=== PATIENT | female | born 1945 ===

== ENCOUNTER 2016-08-10 13:35 | Emergency (ER) | payer MEDICARE ==
--- NOTE | 2016-08-10 14:37 | Emergency Department Record ---
History of Present Illness - General Chief Complaint: Shortness of breath Stated Complaint: [place]/LOW HEART RATE Time Seen by Provider: 08/10/16 14:25 Source: Patient, Family Mode of Arrival: Ambulatory Limitations: No limitations - History of Present Illness Initial Comments: 70 yo female presents with a brief episode of shortness of breath. The symptoms lasted about 30 seconds. She reports she was in the kitchen and felt short of breath while getting coffee. No chest pain, no syncope, no lightheadedness, no leg swelling. The symptoms resolved after the 30 seconds and she remains asymptomatic. No return of symptoms. She has known chronic bradycardia. No recent chest pain or syncope. She did pass out many years ago. She follows with Dr Olson. He is aware of her HR. She states it has been in the upper 30's in the past when she has seen her doctor. Complaint: Shortness of breath Onset/Timin -: Hour(s) Severity: Mild Quality: Other Consistency: Intermittent Improves With: Nothing Worsens With: Nothing Associated Symptoms: Denies other symptoms Treatments Prior to Arrival: None - Related Data Home Medications Medication Instructions Recorded Confirmed Last Taken Aspirin 81 mg PO DAILY 08/10/16 08/10/16 08/10/16 Atorvastatin Calcium [Lipitor] 10 mg PO QHS 08/10/16 08/10/16 08/09/16 Losartan Potassium [Losartan 100 mg PO DAILY 08/10/16 08/10/16 08/10/16 Potassium] Allergies Allergy/AdvReac Type Severity Reaction Status Date / Time codeine [CODEINE] Allergy Unknown not sure Verified 08/10/16 14:10 penicillin V potassium Allergy Unknown not sure Verified 08/10/16 14:10 [From MILADY Moser] Travel Screening - Travel/Exposure Within Last 30 Days Have you traveled within the last 30 days?: No Review of Systems Constitutional: Denies: Chills, Fever, Malaise, Weakness Eyes: Denies: Eye discharge ENT: Denies: Congestion, Throat pain Respiratory: Reports: Dyspnea. Denies: Cough, Hemoptysis, Stridor, Wheezes Cardiovascular: Denies: Chest pain, Dyspnea on exertion, Edema, Orthopnea, Palpitations, Syncope Endocrine: Denies: Fatigue, Polydipsia, Polyuria Gastrointestinal: Denies: Abdominal pain, Diarrhea, Nausea, Vomiting Genitourinary: Denies: Dysuria, Frequency, Hematuria, Urgency Musculoskeletal: Denies: Arthralgia, Back pain, Myalgia Skin: Denies: Bruising, Change in color, Rash Neurological: Denies: Confusion, Headache, Numbness, Tingling, Tremors, Vertigo , Weakness Psychiatric: Denies: Anxiety Hematological/Lymphatic: Denies: Blood Clots, Easy bleeding, Easy bruising, Swollen glands Past Medical History - SOCIAL HISTORY Smoking Status: Current every day smoker Alcohol Use: None Drug Use: None - RESPIRATORY Hx Respiratory Disorders: No - CARDIOVASCULAR Hx Cardio Disorders: Yes Hx Hypertension: Yes Comment:: low heart rate, high cholesterol - NEURO Hx Neuro Disorders: No - GI Hx GI Disorders: No - Hx Genitourinary Disorders: No - ENDOCRINE Hx Endocrine Disorders: No - MUSCULOSKELETAL Hx Musculoskeletal Disorders: No - PSYCH Hx Psych Problems: No - HEMATOLOGY/ONCOLOGY Hx Hematology/Oncology Disorders: No Family Medical History Any Significant Family History?: Yes Family Hx Comment (NOT TO BE USED IN PLACE OF ITEMS BELOW): Father-pacemaker Hx Heart Disease: Father, Mother Hx HTN: Father, Mother Hx Stroke: Father, Mother Physical Exam - General General Appearance: Alert, Oriented x3, Cooperative, No acute distress Limitations: No limitations - Head Head exam: Normal inspection - Eye Eye exam: Normal appearance, PERRL. negative: Conjunctival injection, Periorbital swelling - ENT ENT exam: Normal exam Ear exam: Normal external inspection Nasal Exam: Normal inspection Mouth exam: Normal external inspection Teeth exam: Normal inspection - Neck Neck exam: Normal inspection, Full ROM. negative: Tenderness - Respiratory Respiratory exam: Normal lung sounds bilaterally. negative: Respiratory distress - Cardiovascular Cardiovascular Exam: Normal rhythm, Normal heart sounds, Bradycardia. negative : Regular rate, Diastolic murmur, Systolic murmur Peripheral Pulses: 2+: Radial (R), Radial (L) - GI/Abdominal GI/Abdominal exam: Soft. negative: Tenderness - Rectal Rectal exam: Deferred - exam: Deferred - Extremities Extremities exam: Normal inspection, Full ROM, Normal capillary refill. negative: Tenderness - Back Back exam: Reports: Normal inspection, Full ROM. Denies: Muscle spasm, Rash noted, Tenderness - Neurological Neurological exam: Alert, Normal gait, Oriented X3 - Psychiatric Psychiatric exam: Normal affect, Normal mood. 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 08/10/16 14:36 Reevaluation #2: EKG 15:03 sinus pato 42, intervals normal, axis normal, ST normal. No EKG changes from the prior.10/03/15 08/10/16 15:08 Reevaluation #3: The labs were reviewed No acute changes on the CBC or CMP The troponin is normal D-Dimer is mildly elevated at 0.54 Given her shortness of breath CTA ordered. 08/10/16 15:25 Reevaluation #4: The CT scan was reviewed No acute PE or new pathology. Chronic stable lung nodule. Repeat Troponin Pending. 08/10/16 17:55 Reevaluation #5: Repeat troponin was negative The EKG was unchanged from the prior, her symptoms were atypical with short of breath for 30 seconds then gone, no acute findings on the CT, no arrhythmia on monitor or EKG, negative serial enzymes. DC home to followup with her PCP and Dr Olson as needed with instructions for reasons to return to the ED 08/10/16 18:21 Medical Decision Making - Lab Data Result diagrams: 08/10/16 14:10 08/10/16 14:10 Disposition Clinical Impression: Acute dyspnea Instructions: Dyspnea (ED) Additional Instructions: Return to the ER if you have any return of the symptoms you had today Return if you have any new symptoms or concerns Call your doctor to follow up this week in the office to review this ER visit and your symptoms. Forms: Patient Portal Access
[2016-08-10 14:46] LABS: BASO % 0.9 % (0-6); EOS % 3.8 % (0-6); GRAN % 43.2 % (47-80); HEMATOCRIT 43.2 % (35.0-47.0); HEMOGLOBIN 14.2 gm/dl (11.6-16.0); LYMPH % 44.6 % (16-45); MEAN CELL VOLUME 87.6 fl (81-97); MEAN CORPUSCULAR HEMOGLOBIN 28.8 pg (27-33); MEAN CORPUSCULAR HGB CONC 32.9 g/dl (32-36); MEAN PLATELET VOLUME 11.4 fl (7.4-10.4); MONO % 7.5 % (0-9); PLATELET COUNT 202 K/uL (130-400); RED BLOOD COUNT 4.93 M/uL (3.80-5.40); RED CELL DISTRIBUTION WIDTH 14.4 % (11.5-14.5); WHITE BLOOD COUNT W/O DIFF 4.2 K/uL (4.2-12.2)
[2016-08-10 14:58] LABS: ALB/GLOB RATIO 1.4 (1.1-1.8); ALKALINE PHOSPHATASE 99 U/L (38-126); ALT/SGPT 20 U/L (9-52); ANION GAP 8.6 (7-16); AST/SGOT 21 U/L (14-36); BLOOD UREA NITROGEN 15 mg/dL (7-17); CARBON DIOXIDE 26.4 mmol/L (22-30); CREATININE 0.7 mg/dL (0.52-1.04); EST GLOMERULAR FILTRATION RATE > 60 ml/min; GLUCOSE,RANDOM 86 mg/dL (70-110); TOTAL PROTEIN 6.9 gm/dL (6.3-8.2)
[2016-08-10 15:01] LABS: INR 0.95; PARTIAL THROMBOPLASTIN TIME 24.8 SECONDS (24.5-39.1); PROTHROMBIN TIME (PATIENT) 10.7 SECONDS (9.5-12.1)
[2016-08-10 15:04] LABS: D-DIMER 0.54 mg/L FEU (0-0.59)
[2016-08-10 15:13] LABS: TROPONIN I < 0.012 ng/mL (0.00-0.034)
--- NOTE | 2016-08-11 09:16 | RADIOLOGY REPORT ---
DATE: 08/10/2016. EXAM: TWO-VIEW CHEST. HISTORY: Difficulty breathing. TECHNIQUE: Frontal and lateral views of the chest were performed. FINDINGS: Heart size is normal. The lung moreno are clear. No infiltrate or pleural effusion. Osseous structures are normal. IMPRESSION: NEGATIVE CHEST EXAMINATION. JOB NUMBER: [id number] MTDD
--- NOTE | 2016-08-11 09:56 | CT ANGIOGRAM REPORT ---
DATE: 08/10/2016 at 4:31 p.m. EXAM: CT ANGIOGRAM OF THE CHEST FOR PE WITH POSTPROCESSING. HISTORY: Shortness of breath, elevated D-dimer. Possible PE. TECHNIQUE: CTA of the chest was performed following the intravenous administration of 75 mL of Omnipaque 350 as the intravenous contrast. Postprocessing on an independent workstation was performed and coronal and sagittal 3D MIP series obtained. COMPARISON: Prior CT of the chest dated 09/25/2010. Two-view chest x-ray dated 08/10/2016. FINDINGS: No definite PE identified. No thoracic aortic aneurysm or dissection is seen. Atheromatous plaque is noted involving the thoracic aorta, slightly progressed from before. No pleural or pericardial effusion evident. No hilar or mediastinal adenopathy seen. Multiple low-attenuation masses are again noted in the liver. Several of these have increased in size from the prior study. The largest today is seen superiorly in the right lobe measuring approximately 3.6 cm in size with a CT density of 2 consistent with a cyst. These are all presumably multiple hepatic cysts, and recommend correlation with prior work up. No pneumothorax evident. On the prior study, note was made of a small nodule in the right middle lobe only about 3.0 mm in size. This is again seen on image 73 of 103 today and appears unchanged. Tiny bullae are seen throughout the lungs, likely representing central lobular emphysema. Hypertrophic spurring in the spine. IMPRESSION: 1. NO DEFINITE PE IDENTIFIED. 2. TINY BULLAE IN THE LUNGS LIKELY REPRESENTING CENTRAL LOBULAR EMPHYSEMA. 3. STABLE, TINY NODULE IN THE RIGHT MIDDLE LOBE. 4. NUMEROUS LOW-ATTENUATION MASSES IN THE LIVER ARE LIKELY ALL HEPATIC CYSTS, SOME OF WHICH HAVE INCREASED IN SIZE FROM THE 09/25/2010 EXAMINATION, WITH THE LARGEST CURRENTLY SEEN MEASURING ABOUT 3.6 CM IN SIZE TODAY. JOB NUMBER: [id number] MTDD
== END 2016-08-10 18:47 | disposition home or self-care (01) ==
LOC: ER 13:35
DX: R06.00 Dyspnea, unspecified (principal); R79.89 Other specified abnormal findings of blood chemistry; R91.1 Solitary pulmonary nodule; I10 Essential (primary) hypertension; Z87.891 Personal history of nicotine dependence
CPT/HCPCS: 99284 ×2; 85025; 85730; 85610; 84484; 80053; 85379; 83880; 71020; 71275; 93005; 93010; Q9967

== ENCOUNTER 2018-05-14 01:28 | Emergency (ER) | payer MEDICARE ==
[2018-05-14] MEDS ORDERED: MAGNESIUM HYDROXIDE/AL HYDROX 30 ML, LIDOCAINE VISC 2% 15ML 15 ML PO ONE ×2 (01:35)
--- NOTE | 2018-05-14 01:40 | Emergency Department Record ---
History of Present Illness - General Chief Complaint: Chest Pain Stated Complaint: CHEST PAIN Time Seen by Provider: 05/14/18 01:29 Source: Patient Mode of Arrival: Ambulatory Limitations: No limitations - History of Present Illness Initial Comments: 72 yo female presents to ED for evaluation of chest discomfort that began approximately 1.5 hours prior to arrival. Patient describes her pain as a "cramp" that radiates to the left chest. Patient denies fevers, chills, cough, nausea, or vomiting symptoms. Patient did take 324 mg ASA prior to arrival. 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 MD Complaint: Chest pain Onset/Timin -: Minutes(s) Pain Location: Epigastric Pain Radiation: LUE Severity: Moderate Quality: Other Consistency: Constant Improves With: Nothing Worsens With: Nothing Treatments Prior to Arrival: Aspirin - Related Data Home Medications Medication Instructions Recorded Confirmed Last Taken Amlodipine Besylate 2.5 mg PO DAILY 05/14/18 05/14/18 05/13/18 Allergies Allergy/AdvReac Type Severity Reaction Status Date / Time codeine [CODEINE] Allergy Unknown not sure Verified 08/10/16 14:10 penicillin V potassium Allergy Unknown not sure Verified 08/10/16 14:10 [From MILADY Moser] Review of Systems Constitutional: Denies: Chills, Fever, Malaise, Night sweats Eyes: Denies: Eye discharge, Eye pain ENT: Denies: Congestion, Ear pain, Epistaxis Respiratory: Denies: Cough, Dyspnea Cardiovascular: Reports: Chest pain. Denies: Dyspnea on exertion, Edema Endocrine: Denies: Fatigue, Heat or cold intolerance Gastrointestinal: Reports: Abdominal pain. Denies: Nausea, Vomiting Genitourinary: Denies: Incontinence, Retention Musculoskeletal: Denies: Arthralgia, Back pain Skin: Denies: Bruising, Change in color Neurological: Denies: Abnormal gait, Confusion, Headache, Seizure Psychiatric: Denies: Anxiety Hematological/Lymphatic: Denies: Anemia, Blood Clots Past Medical History - SOCIAL HISTORY Smoking Status: Current every day smoker Drug Use: None - RESPIRATORY Hx Respiratory Disorders: No - CARDIOVASCULAR Hx Cardio Disorders: Yes Hx Hypertension: Yes Comment:: low heart rate, high cholesterol - NEURO Hx Neuro Disorders: No - GI Hx GI Disorders: No - Hx Genitourinary Disorders: No - ENDOCRINE Hx Endocrine Disorders: No - MUSCULOSKELETAL Hx Musculoskeletal Disorders: No - PSYCH Hx Psych Problems: No - HEMATOLOGY/ONCOLOGY Hx Hematology/Oncology Disorders: No Family Medical History Family Hx Comment (NOT TO BE USED IN PLACE OF ITEMS BELOW): Father-pacemaker Hx Heart Disease: Father, Mother Hx HTN: Father, Mother Hx Stroke: Father, Mother Physical Exam - General General Appearance: Alert, Oriented x3, Cooperative, Moderate distress Limitations: No limitations - Head Head exam: Atraumatic, Normocephalic, Normal inspection Head exam detail: negative: Abrasion, Contusion, Doe's sign, General tenderness, Hematoma, Laceration - Eye Eye exam: Normal appearance. negative: Conjunctival injection, Periorbital swelling, Periorbital tenderness, Scleral icterus - ENT Ear exam: negative: Auricular hematoma, Auricular trauma Nasal Exam: negative: Active bleeding, Discharge, Dried blood, Foreign body Mouth exam: negative: Drooling, Laceration, Muffled voice, Tongue elevation - Neck Neck exam: Normal inspection. negative: Meningismus, Tenderness - Respiratory Respiratory exam: Normal lung sounds bilaterally. negative: Rales, Respiratory distress, Rhonchi, Stridor - Cardiovascular Cardiovascular Exam: Regular rate, Normal rhythm, Normal heart sounds - GI/Abdominal GI/Abdominal exam: Soft. negative: Rebound, Rigid, Tenderness - Rectal Rectal exam: Deferred - exam: Deferred - Extremities Extremities exam: Normal inspection. negative: Pedal edema, Tenderness - Back Back exam: Denies: CVA tenderness (R), CVA tenderness (L) - Neurological Neurological exam: Alert, Normal gait, Oriented X3 - Psychiatric Psychiatric exam: Normal affect, Normal mood - Skin Skin exam: Normal color. negative: Abrasion Type of lesion: negative: abrasion Course - Reevaluation(s) Reevaluation #1: 05/14/18 01:43 EKG: Sinus Bradycardia 49 Normal axis, normal intervals No acute ST-T wave changes present Reevaluation #2: 05/14/18 02:20 Laboratory studies were reviewed and are grossly unremarkable for an acute process. CXR: Negative Reevaluation #3: 05/14/18 02:50 Patient was updated on all results, will initiate transfer for further cardiac evaluation. Reevaluation #4: 05/14/18 02:53 Case was discussed with Dr. Bran, will accept transfer for further evaluation. Medical Decision Making - Lab Data Result diagrams: 05/14/18 01:41 05/14/18 01:41 Disposition Disposition: Transfer Clinical Impression: Atypical chest pain Disposition: Acute Care Hospital Transfer Transfer To: [facility] Reason For Transfer: Cardiac Evaluation Accepting Physician: Shant Time Discussed w/Accepting Physician: 02:57 Condition: (2) Stable Forms: Patient Portal Access Time of Disposition: 02:57 Quality - Quality Measures Quality Measures: N/A - Blood Pressure Screening Does Patient Have Any of the Following: Active Dx of HTN Blood Pressure Classification: Pre-Hypertensive BP Reading Systolic Measurement: 182 Diastolic Measurement: 82 Screening for High Blood Pressure: Patient Exclusion, Hx of HTN [[id number]]
[2018-05-14 01:51] LABS: HEMATOCRIT 44.1 % (35.0-47.0); HEMOGLOBIN 14.5 gm/dl (11.6-16.0); MEAN CELL VOLUME 90.6 fl (81-97); MEAN CORPUSCULAR HEMOGLOBIN 29.8 pg (27-33); MEAN CORPUSCULAR HGB CONC 32.9 g/dl (32-36); MEAN PLATELET VOLUME 10.8 fl (7.4-10.4); PLATELET COUNT 216 K/uL (130-400); RED BLOOD COUNT 4.87 M/uL (3.80-5.40); RED CELL DISTRIBUTION WIDTH 13.9 % (11.5-14.5); WHITE BLOOD COUNT W/O DIFF 5.7 K/uL (4.2-12.2)
[2018-05-14 02:06] LABS: BLOOD UREA NITROGEN 13 mg/dL (8-23); CREATININE 0.6 mg/dL (0.5-0.9); EST GLOMERULAR FILTRATION RATE > 60 mL/min
[2018-05-14 02:07] LABS: LIPASE 38 U/L (13-60); TOTAL PROTEIN 7.1 g/dL (6.6-8.7)
[2018-05-14 02:09] LABS: GLUCOSE,RANDOM 103 mg/dL (74-109)
[2018-05-14 02:11] LABS: ALB/GLOB RATIO 1.6 (1.1-1.8); ALBUMIN 4.4 g/dL (4.0-5.0); ALKALINE PHOSPHATASE 108 U/L (35-104); ALT/SGPT 12 U/L (<33); AST/SGOT 16 U/L (10.0-35.0); PLATELET ESTIMATE NORMAL (NORMAL)
--- NOTE | 2018-05-17 07:08 | RADIOLOGY REPORT ---
EXAM: CHEST, TWO VIEWS HISTORY: CHEST TIGHTNESS, EPIGASTRIC PAIN FOR ONE DAY. TECHNIQUE: Two views of the chest were obtained. Comparison: 08/10/16. FINDINGS: The cardiomediastinal silhouette is unremarkable. The lungs appear hyperinflated likely related to emphysematous change/COPD. No focal consolidation or pleural effusion. IMPRESSION: STABLE CHEST. JOB NUMBER: [id number] MTDD
== END 2018-05-14 03:15 | disposition short-term general hospital (02) ==
LOC: ER 01:28
DX: R07.89 Other chest pain (principal); R10.13 Epigastric pain; I10 Essential (primary) hypertension; F17.210 Nicotine dependence, cigarettes, uncomplicated
CPT/HCPCS: 71046; 80053; 83690; 84484; 85027; 99285